=== PATIENT | male | born 1975 | race Asian ===

== ENCOUNTER 2017-02-19 21:31 | Emergency (ER) | payer OTHER ==
[2017-02-19 21:37] VITALS: BP 128/77; PULSE 73; TEMP 98.7; BMI 25.1
--- NOTE | 2017-02-19 22:03 | PDOC ---
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 The patient states his pain is an intermittent "sticking sensation" to his anterior left chest. He denies experiencing this pain in the past. He state he did not present to the ED sooner because he felt the pain might be GERD. He denies shortness of breath, headache and dizziness. He denies fever, chills, nausea, vomit, diarrhea and constipation. He denies dysuria, frequency, urgency and hematuria. Allergies: NKDA Family Hx: no cardiac Hx. <Judith Santiago - Last Filed: 02/19/17 22:06> <Guillermina Fernando - Last Filed: 02/20/17 05:51> - General Chief Complaint: Chest Pain Stated Complaint: ACUTE CHEST PAIN Time Seen by Provider: 02/19/17 21:49 Past History <Judith Santiago - Last Filed: 02/19/17 22:06> - Psycho/Social/Smoking Cessation Hx Suicidal Ideation: No Smoking History: Never smoked Have you smoked in the past 12 months: No Information on smoking cessation initiated: No Hx Alcohol Use: No Drug/Substance Use Hx: No <Guillermina Fernando - Last Filed: 02/20/17 05:51> - Past Medical History Allergies/Adverse Reactions: Allergies Allergy/AdvReac Type Severity Reaction Status Date / Time No Known Allergies Allergy Verified 02/19/17 21:35 Review of Systems - Review of Systems Able to Perform ROS?: Yes Comments:: 02/19/17 22:12 GENERAL/CONSTITUTIONAL: No fever or chills. No weakness. HEAD, EYES, EARS, NOSE AND THROAT: No change in vision. No ear pain or discharge. No sore throat. CARDIOVASCULAR: (+) chest pain. no shortness of breath. RESPIRATORY: No cough, wheezing, or hemoptysis. GASTROINTESTINAL: No nausea, vomiting, diarrhea or constipation. GENITOURINARY: No dysuria, frequency, or change in urination. MUSCULOSKELETAL: No joint or muscle swelling or pain. No neck or back pain. SKIN: No rash NEUROLOGIC: No headache, vertigo, loss of consciousness, or change in strength/ sensation. ENDOCRINE: No increased thirst. No abnormal weight change. HEMATOLOGIC/LYMPHATIC: No anemia, easy bleeding, or history of blood clots. ALLERGIC/IMMUNOLOGIC: No hives or skin allergy. <Judith Santiago - Last Filed: 02/19/17 22:06> *Physical Exam - Vital Signs Last Vital Signs Temp Pulse Resp BP Pulse Ox 98.7 F 73 14 128/77 100 02/19/17 21:36 02/19/17 21:36 02/19/17 21:36 02/19/17 21:36 02/19/17 21:36 - Physical Exam Comments: 02/19/17 22:12 GENERAL: Awake, alert, and fully oriented, in no acute distress HEAD: No signs of trauma EYES: PERRLA, EOMI, sclera anicteric, conjunctiva clear ENT: Auricles normal inspection, hearing grossly normal, nares patent, oropharynx clear without exudates. Moist mucosa NECK: Normal ROM, supple, no lymphadenopathy, JVD, or masses LUNGS: Breath sounds equal, clear to auscultation bilaterally. No wheezes, and no crackles HEART: Regular rate and rhythm, normal S1 and S2, no murmurs, rubs or gallops ABDOMEN: Soft, nontender, normoactive bowel sounds. No guarding, no rebound. No masses EXTREMITIES: Normal range of motion, no edema. No clubbing or cyanosis. No cords, erythema, or tenderness NEUROLOGICAL: Cranial nerves II through XII grossly intact. Normal speech, normal gait SKIN: Warm, Dry, normal turgor, no rashes or lesions noted. <Judith Santiago - Last Filed: 02/19/17 22:06> - Vital Signs Last Vital Signs Temp Pulse Resp BP Pulse Ox 98.7 F 73 14 128/77 100 02/19/17 21:36 02/19/17 21:36 02/19/17 21:36 02/19/17 21:36 02/19/17 21:36 <Guillermina Fernando - Last Filed: 02/20/17 05:51> ED Treatment Course - LABORATORY CBC & Chemistry Diagram: 02/19/17 21:48 02/19/17 21:48 <Judith Santiago - Last Filed: 02/19/17 22:06> - LABORATORY CBC & Chemistry Diagram: 02/19/17 21:48 02/19/17 21:48 <Guillermina Fernando - Last Filed: 02/20/17 05:51> Medical Decision Making - Medical Decision Making 02/20/17 05:49 Pt has high cholesterol, otherwise completely healthy. COmes with sticking sensation in the left chest at the area of the hear, and a burning sensation that has not remit even after 48hrs. Pt's EKG is normal, and his cardiac enzymes are normal. He was sent home with advice to lower his triglycerides. Pt is on statins, however he requires more treatment for the triglycerides. Pt will follow with his PMD. <Guillermina Fernando - Last Filed: 02/20/17 05:51> *DC/Admit/Observation/Transfer - Attestations Scribe Attestion: 02/19/17 22:12 Documentation prepared by Judith Santiago, acting as medical asst for Guillermina Fernando MD <Judith Santiago - Last Filed: 02/19/17 22:06> - Discharge Dispostion Admit: No <Guillermina Fernando - Last Filed: 02/20/17 05:51> Diagnosis at time of Disposition: Atypical chest pain, Hypertriglyceridemia - Discharge Dispostion Disposition: HOME - Patient Instructions Printed Discharge Instructions: DI for Atypical Chest Pain
[2017-02-19 22:13] LABS: MCH 25.9 pg (25.7-33.7); MCHC 32.8 g/dl (32.0-35.9); MEAN PLT VOLUME 9.3 fl (7.5-11.1); PLATELET COUNT 190 K/MM3 (134-434); RDW 13.4 % (11.9-15.9); WHITE BLOOD COUNT 6.1 K/mm3 (4.0-10.0)
[2017-02-19 22:23] LABS: ALBUMIN 3.8 g/dl (3.4-5.0); ANION GAP 10 (8-16); BILIRUBIN,TOTAL 0.3 mg/dL (0.2-1.0); CALCIUM 8.6 mg/dL (8.5-10.1); CO2 28 mmol/L (21-32); GLUCOSE,RANDOM 93 mg/dL (74-106); SGOT/AST 22 U/L (15-37); SGPT/ALT 31 U/L (12-78); TOT PROT 7.2 g/dl (6.4-8.2)
[2017-02-19 22:25] LABS: ALK PHOS 101 U/L (45-117); TROPONIN I < 0.02 ng/ml (0.00-0.05)
--- NOTE | 2017-02-20 14:19 | EKG ---
Test Reason : Blood Pressure : / mmHG Vent. Rate : 067 BPM Atrial Rate : 067 BPM P-R Int : 156 ms QRS Dur : 096 ms QT Int : 362 ms P-R-T Axes : 064 076 054 degrees QTc Int : 382 ms NORMAL SINUS RHYTHM NORMAL ECG NO PREVIOUS ECGS AVAILABLE Confirmed by DERECK GUSMAN MD ([id number]) on 02/20/2017 2:18:56 PM Referred By: Confirmed By:DERECK GUSMAN MD
== END 2017-02-19 23:00 | disposition home or self-care (01) ==
LOC: JER 21:31
DX: R07.89 Other chest pain (principal); E78.1 Pure hyperglyceridemia
CPT/HCPCS: 36415; 80053; 82550; 84478; 84484; 85027; 93005; 93010; 99281-25